=== PATIENT | female | born 1990 | race Caucasian/White ===

== ENCOUNTER → 2017-12-19 | Day surgery (SDC) | payer MEDICAID ==
[~2017-12-19] MED LIST: PROPOFOL 500 MG/50 ML BTL IV ONE; SODIUM CHLORIDE 0.9% 100 ML BAG IV ONE; SODIUM CHLORIDE 0.9% 250 ML ADDBAG IV ONE; SPRI28TA PO
== END | disposition home or self-care (01) ==
LOC: ESDC 07:13
PROVIDERS: ATTEND Internal Medicine Gastroenterology
DX: R10.9 Unspecified abdominal pain (principal); R19.7 Diarrhea, unspecified; R10.13 Epigastric pain; K29.70 Gastritis, unspecified, without bleeding; K20.9 Esophagitis, unspecified
CPT/HCPCS: 00813; 43239; 45380; 88305; 88312; J3010